=== PATIENT | female | born 1945 | race Caucasian/White ===

== ENCOUNTER 2024-08-17 02:48 | Emergency (ER) | payer MEDICAID ==
[~2024-08-17] VITALS: Ht 167.6 cm; Wt 66.0 kg
[~2024-08-17 02:48] MED LIST: ALPR0.5T PO; ATEN50TA PO
[2024-08-17 02:59] VITALS: O2SAT 100
[2024-08-17 04:06] LABS: CHLORIDE 105 mEq/L (98-107); POTASSIUM 3.5 mEq/L (3.5-5.1); SODIUM 140 mEq/L (136-145)
[2024-08-17 04:07] LABS: CALCIUM 9.8 mg/dL (8.7-10.4); CARBON DIOXIDE 27 mEq/L (21-32)
[2024-08-17] MEDS: MECLIZINE 25MG TABLET PO ONE (04:09)
[2024-08-17 04:10] LABS: BASOPHILS % 0.5 % (0.0-2.0); EOSINOPHILS % 0.7 % (0.0-5.0); HEMATOCRIT. 32.1 % (36.0-48.0); HEMOGLOBIN. 10.9 g/dL (12.0-16.0); LYMPHOCYTES % 10.4 % (20.0-50.0); MEAN CORPUSCULAR HEMOGLOBIN 31.4 pg (28.0-32.0); MEAN CORPUSCULAR HGB CONC 33.9 g/dL (31.0-37.0); MEAN CORPUSCULAR VOLUME 92.8 fL (81.0-99.0); MEAN PLATELET VOLUME 8.7 fl (7.4-10.4); MONOCYTES % 4.4 % (2.0-8.0); PLATELET 244 x1000/uL (130-400); RED BLOOD CELL COUNT 3.46 mill/uL (4.2-5.4); RED CELL DISTRIBUTION WIDTH 12.9 % (11.6-14.6); WHITE BLOOD COUNT 7.3 x1000/uL (4.5-11.0)
[2024-08-17] MEDS: MECLIZINE 25MG TABLET PO NR (04:10)
[2024-08-17 04:12] LABS: ETHANOL BLOOD < 10 mg/dL (<10); GLUCOSE 129 mg/dL (70-105); UREA NITROGEN BLOOD 21 mg/dL (9-23)
[2024-08-17 04:13] LABS: TROPONIN I HIGH SENSITIVITY 5 ng/L (3.0-34)
[2024-08-17 04:17] LABS: PARTIAL THROMBOPLASTIN TIME 25.4 sec (23.4-31.0); PROTHROMBIN TIME 10.6 sec (9.6-11.0)
[2024-08-17] MEDS ORDERED: ONDA4TAB50 MT (05:17)
[2024-08-17] MEDS ORDERED: MECL-299 MT (05:17)
[2024-08-17] MEDS ORDERED: ACET-2708 MT (05:17)
[2024-08-17 05:57] VITALS: BP 160/69; PULSE 63; RESP 16; TEMP 36.7; O2SAT 98
== END 2024-08-17 06:00 | disposition home or self-care (01) ==
LOC: ER 02:48 → CANBEDREQ 05:20 → ER 06:00
DX: R42 Dizziness and giddiness (principal); D64.9 Anemia, unspecified; F41.9 Anxiety disorder, unspecified; I10 Essential (primary) hypertension; Z00.00 Encounter for general adult medical examination without abnormal findings; Z79.899 Other long term (current) drug therapy
CPT/HCPCS: 80048; 80320; 83880; 85025; 85610; 85730; 84484; 36415; 71045; 70450; 93005; 99285; J8597; G0480